=== PATIENT | male | born 1960 | race Caucasian/White ===

== ENCOUNTER 2025-04-11 17:59 | Emergency (ER) | payer OTHER, SELFPAY ==
[2025-04-11 18:04] VITALS: BP 152/78
--- NOTE | 2025-04-11 19:12 | ED.GENMED ---
History of Present Illness
General
Chief Complaint: Fall
Time Seen by Provider: 04/11/25 19:05
History of Present Illness
History of Present Illness:
64-year-old male presents the emergency department for evaluation of left hip, left elbow, and left ring finger pain after falling at work today. Reports that he was opening the door with his foot when he lost his balance and fell. Denies head
strike or LOC. Able to ambulate.
Review of Systems
Review of Systems
Allergies reviewed?: Yes
All Other Systems: ROS reviewed and negative except as documented in HPI and ROS
Phy Exam
Physical Exam
Physical Exam:
GEN: Well appearing, NAD, WDWN
HEENT: Oral mucosa moist, no scleral icterus
Cardiac: Regular rate
Lung: No respiratory distress, no tachypnea
MSK: Minor abrasion to left elbow, no swelling, normal range of motion in all peck. Small hematoma of the left greater trochanteric bursa of the left hip however left hip range of motion is normal, no ecchymosis. Left ring finger appears mildly
swollen at the PIP joint, range of motion limited by pain
Skin: Good color, no pallor or jaundice, no rashes
Neuro: AO x3, moves all extremities freely
Psych: Calm, cooperative
Course
Orders/Labs/Results
Orders:
Orders
04/11/25 18:13
CR Elbow - Left Min 3 Views Urgent
Comment:
Reason For Exam: fall
CR Finger(s)/thumb Min 2 Vw Lt Urgent
Comment:
Reason For Exam: fall
Indicate Which Finger:: Ring Finger
CR Hip - LT w/wo Pel 2-3 Vw* Urgent
Comment:
Reason For Exam: fall, swelling
Include a pelvis x-ray?: Yes
Vital Signs
Initial and Last Documented VS:
Initial Vital Signs
Temp Pulse Resp BP Pulse Ox
98.4 F 78 18 152/78 98
04/11/25 18:04 04/11/25 18:04 04/11/25 18:04 04/11/25 18:04 04/11/25 18:04
Last Documented Vital Signs
Temp Pulse Resp BP Pulse Ox
98.4 F 78 18 152/78 98
04/11/25 18:04 04/11/25 18:04 04/11/25 18:04 04/11/25 18:04 04/11/25 19:14
MDM/Problems Addressed
MDM/Problems Addressed:
X-rays of the left hip, left finger and left elbow independently interpreted by me are negative for acute fracture or dislocations. Discussed supportive care, no work restrictions
*Pulse Oximetry
SaO2: 98
Oxygen Mode of Delivery: Room air
Patient hypoxic: no
*Critical Care Note
Total Time (30-74mins, 75-104mins- exclusive of procedures): Not Applicable
ED Attending Note
-
Portions of this chart may have been created with voice recognition software.� Occasional wrong word or��sound alike� substitutions may have occurred due to the inherent limitations of voice recognition software.
Discharge Plan
Departure
Patient Disposition: Home (Routine Discharge)
Date of Disposition: 04/11/25
Time of Disposition: 19:13
Patient with high blood pressure during this ER visit?: No
Discharge Problem:
Sprain of left ring finger, Contusion of hip, left, Abrasion of elbow, left
Instructions: Hip Pointer (DC)
Stand Alone Forms: Return to Work
Interventions
Interventions:
*Risk Screen - Suicide Last Done: 04/11/25 18:04
*General Assessment Last Done: 04/11/25 18:04
*Neglect/Abuse Screening Last Done: 04/11/25 19:59
*ED- Fall Risk Assessment Last Done: 04/11/25 19:59
*ED COVID-19 Vaccine History Last Done: 04/11/25 18:04
*Nursing Disposition Last Done: 04/11/25 19:59
ED-Musculoskeletal Assessment Last Done: 04/11/25 19:58
ED- Neurological Assessment Last Done: 04/11/25 19:58
ED-Skin Assessment Last Done: 04/11/25 19:58
Discharge Date and Time
Discharge Date/Time: 04/11/25 19:59
Print Language: [id number]
== END 2025-04-11 19:59 | disposition home or self-care (01) ==
LOC: EMR 17:59
PROVIDERS: EMERGENCY PHYSICIAN Student in an Organized Health Care Education/Training Program; FAMILY PHYSICIAN Hospitalist
DX: S50.319A Abrasion of unspecified elbow, initial encounter (principal); S63.615A Unspecified sprain of left ring finger, initial encounter; S70.02XA Contusion of left hip, initial encounter; W01.0XXA Fall on same level from slipping, tripping and stumbling without subsequent striking against object, initial encounter; Y99.0 Civilian activity done for income or pay
CPT/HCPCS: 99283; 73080; 73140; 73502